=== PATIENT | female | born 1995 | race Two or more races ===

== ENCOUNTER 2017-09-05 10:25 | Observation (INO) | payer MEDICAID ==
[2017-09-05] MEDS ORDERED: PREN-96 PO (11:19)
[2017-09-05 11:35] LABS: Basophils # (auto) 0 uL; Red Cell Distribution Width 12.7 % (11.8-14.3)
[2017-09-05 11:36] LABS: INR 0.88 (0.9-1.15); Partial Thromboplastin Time 27.5 sec (23.78-33.04); Prothrombin Time 9.5 sec (9.27-12.13)
[2017-09-05 11:37] LABS: Basophils % (auto) 0.2 % (0.0-2.0); Eosinophils # (auto) 0.1 uL; Eosinophils % (auto) 1.1 % (0.0-7.0); Hematocrit 35.6 % (36.0-46.0); Hemoglobin 11.6 g/dL (12.2-16.2); Lymphocytes # (auto) 2.1 uL; Mean Corpuscular Hemoglobin 26.4 pg (28.0-32.0); Mean Corpuscular Hgb Conc. 32.6 g/dL (32.0-36.0); Monocytes # (auto) 0.8 uL; Monocytes % (auto) 7.1 % (0.0-12.0); Neutrophils % (auto) 72.6 % (37.0-80.0); Nucleated Red Blood Cells % 0.1 %; Platelet Count (auto) 275 10^3/uL (140-450); Red Blood Cells 4.39 10^6/uL (4.0-5.20)
[2017-09-05 11:38] LABS: Urine Bacteria MANY /hpf (None Seen); Urine Blood Negative /uL (Negative); Urine Specific Gravity 1.005 (1.001-1.035); Urine WBC 4 /hpf (0 - 5)
[2017-09-05 11:50] LABS: Alcohol, Urine < 3.0 mg/dL (0-5); Amphetamine Screen, Urine NEGATIVE (NEGATIVE); Barbiturate Scree,Urine NEGATIVE (NEGATIVE); Benzodiazephine Screen, Urine NEGATIVE (NEGATIVE); Cannabinoid Screen, Urine NEGATIVE (NEGATIVE); Cocaine Screen, Urine NEGATIVE (NEGATIVE); Opiate Scree,Urine NEGATIVE (NEGATIVE); Phencyclidine Screen, Urine NEGATIVE (NEGATIVE)
[2017-09-05 11:51] LABS: Albumin 2.8 g/dL (3.4-5.0); Bilirubin, Total 0.2 mg/dL (0.2-1.0); Calcium 8.4 mg/dL (8.5-10.1); Potassium 3.6 mmol/L (3.5-5.1); Total Protein 7.1 g/dL (6.4-8.2)
== END 2017-09-05 13:15 | disposition home or self-care (01) | DRG 563 ==
LOC: LDRP 10:25
PROVIDERS: ADMIT Obstetrics & Gynecology; ATTEND Obstetrics & Gynecology
DX: O60.03 Preterm labor without delivery, third trimester (principal); Z3A.31 31 weeks gestation of pregnancy
CPT/HCPCS: 36415; 80053; 80307; 81001; 84550; 85025; 85610; 85730; G0378

== ENCOUNTER → 2017-09-07 10:55 | Observation (INO) | payer MEDICAID ==
[~2017-09-07] VITALS: Ht 160 cm; Wt 89.8 kg
[~2017-09-07 10:55] MED LIST: PREN-96 PO
[2017-09-07 11:33] LABS: Protein, Urine 14.4 mg/dL (0.0-11.9)
[2017-09-07 11:43] LABS: 24 Hr. Total Protein, Urine 345.6 mg/24 Hr (<149.1)
[2017-09-07 11:45] LABS: Urine Bacteria FEW /hpf (None Seen); Urine Blood Negative /uL (Negative); Urine Mucus FEW (None Seen); Urine Specific Gravity 1.013 (1.001-1.035); Urine WBC 24 /hpf (0 - 5)
== END | disposition home or self-care (01) | DRG 955 ==
LOC: LDRP 10:55
PROVIDERS: ADMIT Obstetrics & Gynecology; ATTEND Obstetrics & Gynecology
DX: O13.9 Gestational [pregnancy-induced] hypertension without significant proteinuria, unspecified trimester (principal); Z3A.31 31 weeks gestation of pregnancy
CPT/HCPCS: 59025; 81001; 81002; 84156; G0378

== ENCOUNTER 2017-10-05 08:50 | Observation (INO) | payer MEDICAID ==
[~2017-10-05] VITALS: Ht 160 cm; Wt 100.7 kg
== END 2017-10-05 12:20 | disposition home or self-care (01) | DRG 566 ==
LOC: LDRP 08:50
PROVIDERS: ADMIT Specialist; ATTEND Specialist
DX: O13.3 Gestational [pregnancy-induced] hypertension without significant proteinuria, third trimester (principal); Z3A.35 35 weeks gestation of pregnancy
CPT/HCPCS: 59025; 81002; 84156; G0378

== ENCOUNTER 2017-10-27 10:15 | Observation (INO) | payer MEDICAID ==
[2017-10-27 11:16] LABS: Urine Bacteria MOD /hpf (None Seen); Urine Blood Negative /uL (Negative); Urine Specific Gravity 1.007 (1.001-1.035); Urine WBC 48 /hpf (0 - 5)
[2017-10-27 11:27] LABS: 24 Hr. Total Protein, Urine 409.5 mg/24 Hr (<149.1)
== END 2017-10-27 11:45 | disposition home or self-care (01) | DRG 566 ==
LOC: LDRP 10:15
PROVIDERS: ADMIT Obstetrics & Gynecology; ATTEND Obstetrics & Gynecology
DX: O13.3 Gestational [pregnancy-induced] hypertension without significant proteinuria, third trimester (principal); Z3A.38 38 weeks gestation of pregnancy
CPT/HCPCS: 59025; 81001; 81002; 84156; G0378

== ENCOUNTER 2017-10-29 11:15 | Observation (INO) | payer MEDICAID ==
[2017-10-29 13:16] LABS: Eosinophils # (auto) 0.1 uL; Mean Corpuscular Volume 78.1 fL (80.0-100.0); Monocytes # (auto) 0.7 uL; Neutrophils # (auto) 8.2 uL
[2017-10-29 13:17] LABS: Basophils # (auto) 0 uL; Basophils % (auto) 0.4 % (0.0-2.0); Eosinophils % (auto) 0.9 % (0.0-7.0); Hematocrit 34.3 % (36.0-46.0); Hemoglobin 11.2 g/dL (12.2-16.2); Lymphocytes # (auto) 1.9 uL; Lymphocytes % (auto) 17.1 % (10.0-50.0); Mean Corpuscular Hgb Conc. 32.7 g/dL (32.0-36.0); Monocytes % (auto) 6.2 % (0.0-12.0); Neutrophils % (auto) 75.4 % (37.0-80.0); Platelet Count (auto) 253 10^3/uL (140-450); Red Blood Cells 4.39 10^6/uL (4.0-5.20); Red Cell Distribution Width 13.9 % (11.8-14.3); White Blood Cell 10.9 10^3/uL (4.4-10.8)
[2017-10-29 13:18] LABS: Mean Corpuscular Hemoglobin 25.7 pg (28.0-32.0)
[2017-10-29 13:37] LABS: Albumin 2.6 g/dL (3.4-5.0); BUN/Creatinine Ratio 8.5; Bilirubin, Total 0.3 mg/dL (0.2-1.0); Potassium 3.4 mmol/L (3.5-5.1); Total Protein 6.6 g/dL (6.4-8.2); Uric Acid 4.1 mg/dL (2.6-6.0)
[2017-10-29 13:56] LABS: INR 0.85 (0.9-1.15); Partial Thromboplastin Time 26.9 sec (23.78-33.04); Prothrombin Time 9.2 sec (9.27-12.13)
[2017-10-29 15:07] LABS: Urine Bacteria FEW /hpf (None Seen); Urine Blood Negative /uL (Negative); Urine Specific Gravity 1.004 (1.001-1.035); Urine WBC 1 /hpf (0 - 5)
== END 2017-10-29 14:50 | disposition home or self-care (01) | DRG 566 ==
LOC: LDRP 11:15
PROVIDERS: ADMIT Specialist; ATTEND Specialist
DX: O13.3 Gestational [pregnancy-induced] hypertension without significant proteinuria, third trimester (principal); Z3A.39 39 weeks gestation of pregnancy
CPT/HCPCS: 36415; 59025; 76818; 80053; 81001; 81002; 84550; 85025; 85610; 85730; 87086; G0378

== ENCOUNTER 2017-10-31 12:55 | Observation (INO) | payer MEDICAID | END 2017-10-31 14:05 | disposition home or self-care (01) | DRG 566 | LOC: LDRP 12:55 | PROVIDERS: ADMIT Specialist; ATTEND Specialist | DX: O13.3 Gestational [pregnancy-induced] hypertension without significant proteinuria, third trimester (principal); Z3A.39 39 weeks gestation of pregnancy | CPT/HCPCS: 59025; 81002; G0378 ==

== ENCOUNTER 2017-11-02 09:00 | Inpatient (IN) | payer MEDICAID ==
[~2017-11-02] VITALS: Ht 160 cm; Wt 101.6 kg
[2017-11-02] MEDS ORDERED: LACT. RINGERS/OXYTOCIN 20UNITS 1,000 ML IV SCH (09:31)
[2017-11-02] MEDS ORDERED: PHISODERM TOP SOLN 240ML BTL TOP PRN (09:45)
[2017-11-02] MEDS ORDERED: WITCH HAZEL-GLYCERIN PAD TOP PRN (09:45)
[2017-11-02] MEDS ORDERED: DERMOPLAST 60ML BOTTLE TOP PRN (09:45)
[2017-11-02] MEDS ORDERED: NALBUPHINE HCL 10 MG/1ml INJECTION IV PRN (09:45)
[2017-11-02] MEDS ORDERED: LIDOCAINE 2% (LOCAL ANESTH.) PF 5ml SDV ID ONE (09:45)
[2017-11-02] MEDS ORDERED: METHYLERGONOVINE MALEATE 0.2 MG/ML AMP IM PRN (09:45)
[2017-11-02] MEDS ORDERED: LABETALOL HCL 200 MG TAB PO SCH ×2 (10:00→22:00)
[2017-11-02 11:08] LABS: Basophils # (auto) 0 uL; Eosinophils # (auto) 0.1 uL; Eosinophils % (auto) 0.7 % (0.0-7.0); Mean Corpuscular Hemoglobin 25.6 pg (28.0-32.0); Monocytes # (auto) 0.7 uL
[2017-11-02 11:10] LABS: Basophils % (auto) 0.4 % (0.0-2.0); Hematocrit 33.3 % (36.0-46.0); Hemoglobin 10.9 g/dL (12.2-16.2); Lymphocytes # (auto) 2.1 uL; Mean Corpuscular Hgb Conc. 32.8 g/dL (32.0-36.0); Mean Corpuscular Volume 78.1 fL (80.0-100.0); Monocytes % (auto) 7.6 % (0.0-12.0); Neutrophils # (auto) 6.5 uL; Neutrophils % (auto) 69.3 % (37.0-80.0); Platelet Count (auto) 251 10^3/uL (140-450); Red Blood Cells 4.26 10^6/uL (4.0-5.20); Red Cell Distribution Width 14.1 % (11.8-14.3); White Blood Cell 9.3 10^3/uL (4.4-10.8)
[2017-11-02 11:25] LABS: INR 0.87 (0.9-1.15); Partial Thromboplastin Time 27.1 sec (23.78-33.04); Prothrombin Time 9.4 sec (9.27-12.13)
[2017-11-02 11:30] LABS: Albumin 2.6 g/dL (3.4-5.0); Bilirubin, Total 0.4 mg/dL (0.2-1.0); Calcium 8.1 mg/dL (8.5-10.1); Potassium 3.2 mmol/L (3.5-5.1); Total Protein 6.4 g/dL (6.4-8.2); Uric Acid 3.3 mg/dL (2.6-6.0)
[2017-11-02] MEDS ORDERED: LABETALOL HCL 200 MG TAB PO ONE (12:00)
[2017-11-02] MEDS ORDERED: PENICILLIN G POT 5MIL/D5 50ML 50 ML IV ONE (12:00)
[2017-11-02 13:23] LABS: Protein, Urine 9.6 mg/dL (0.0-11.9)
[2017-11-02 13:29] LABS: 24 Hr. Total Protein, Urine 297.6 mg/24 Hr (<149.1)
[2017-11-02] MEDS ORDERED: POTASSIUM CHL 20 Meq TABLET PO ONE (13:30)
[2017-11-02] MEDS: LACTATED RINGER'S 1,000 ML IV SCH ×2 (14:10→16:54)
[2017-11-02] MEDS ORDERED: hydrALAZINE HCL 20 MG/ML VL IV PRN (14:15)
[2017-11-02] MEDS: PENICILLIN G POTASSIUM 2,500,000 UNITS in D5W 5% 50 ML IV SCH ×2 (16:17→20:30)
[2017-11-02 17:09] LABS: Urine Bacteria NONE SEEN /hpf (None Seen); Urine Blood Negative /uL (Negative); Urine Mucus FEW (None Seen); Urine Specific Gravity 1.007 (1.001-1.035); Urine WBC 1 /hpf (0 - 5)
[2017-11-03] VITALS (12 sets, daily range): BP systolic 127–147; BP diastolic 72–97
[2017-11-03] MEDS: PENICILLIN G POTASSIUM 2,500,000 UNITS in D5W 5% 50 ML IV SCH ×3 (00:18→08:00)
[2017-11-03] MEDS: LACTATED RINGER'S 1,000 ML IV SCH ×3 (02:09→22:15)
[2017-11-03] MEDS ORDERED: ONDANSETRON HCL 4 MG/2 ML VIAL IV PRN ×3 (02:15→10:00)
[2017-11-03] MEDS ORDERED: TETRACAINE 1% INJ 2 ML VIAL IJ ONE (08:05)
[2017-11-03 08:09] LABS: RPR Non Reactive (Non Reactive)
[2017-11-03] MEDS ORDERED: MORPHINE SULF(PF) 0.5MG/ML 10ML VIAL ONE (08:37)
[2017-11-03] MEDS ORDERED: fentaNYL CITRATE 100 MCG/2 ML VL ONE (08:38)
[2017-11-03] MEDS ORDERED: MIDAZOLAM HCL 1MG/1ML-2 ML VIAL ONE ×2 (08:38→09:21)
[2017-11-03] MEDS ORDERED: LACT. RINGERS/OXYTOCIN 20UNITS 1,000 ML IV SCH (09:41)
[2017-11-03] MEDS ORDERED: KETOROLAC TROMETH 30 MG/ML 1ML VIAL IV PRN (09:45)
[2017-11-03] MEDS: ceFAZolin 1GM/50ML 50 ML IV SCH ×2 (09:45→17:43)
[2017-11-03] MEDS ORDERED: HYDROmorphone HCL 2 MG/ML VL IV PRN (10:00)
[2017-11-03] MEDS ORDERED: DEXAMETHASONE SOD PHOS 10MG/1ML VIAL INJ IV PRN (10:00)
[2017-11-03] MEDS ORDERED: NALOXONE HCL 0.4 MG/ML VIAL IV PRN (10:00)
[2017-11-03] MEDS ORDERED: ePHEDrine SULFATE 50 MG/ML AMP IV PRN (10:00)
[2017-11-03] MEDS ORDERED: diphenhdrAMINE HCL 50 MG/1 ML VL IV PRN (10:00)
[2017-11-03] MEDS ORDERED: LABETALOL HCL 5 MG/ML 4ML SYRINGE IV PRN (10:00)
[2017-11-03] MEDS ORDERED: NALBUPHINE HCL 10 MG/1ml INJECTION SUBCUT ONE (10:00)
[2017-11-03] MEDS: KETOROLAC TROMETH 30 MG/ML 1ML VIAL IV PRN ×2 (13:46→19:53)
[2017-11-03] MEDS ORDERED: LABETALOL HCL 200 MG TAB PO SCH (18:00)
[2017-11-03 19:58] LABS: Basophils # (auto) 0.1 uL; Basophils % (auto) 0.4 % (0.0-2.0); Eosinophils # (auto) 0 uL; Hemoglobin 10.3 g/dL (12.2-16.2); Monocytes # (auto) 1.1 uL
[2017-11-03 20:00] LABS: Eosinophils % (auto) 0.4 % (0.0-7.0); Hematocrit 30.7 % (36.0-46.0); Lymphocytes # (auto) 2.3 uL; Lymphocytes % (auto) 17.6 % (10.0-50.0); Mean Corpuscular Hemoglobin 26.5 pg (28.0-32.0); Mean Corpuscular Hgb Conc. 33.5 g/dL (32.0-36.0); Mean Corpuscular Volume 79.1 fL (80.0-100.0); Monocytes % (auto) 8.3 % (0.0-12.0); Neutrophils # (auto) 9.4 uL; Neutrophils % (auto) 73.3 % (37.0-80.0); Red Blood Cells 3.88 10^6/uL (4.0-5.20); White Blood Cell 12.9 10^3/uL (4.4-10.8)
[2017-11-03 20:01] LABS: Platelet Count (auto) 214 10^3/uL (140-450); Red Cell Distribution Width 14.1 % (11.8-14.3)
[2017-11-03] MEDS: MORPHINE SULFATE 4 MG/ML SYR/VIAL IV PRN (22:59)
[2017-11-04] MEDS: ceFAZolin 1GM/50ML 50 ML IV SCH ×2 (01:51→09:26)
[2017-11-04] MEDS: KETOROLAC TROMETH 30 MG/ML 1ML VIAL IV PRN (02:52)
[2017-11-04 02:57] VITALS: BP 146/89
[2017-11-04] MEDS: MORPHINE SULFATE 4 MG/ML SYR/VIAL IV PRN (03:43)
[2017-11-04] MEDS: LACTATED RINGER'S 1,000 ML IV SCH (05:43)
[2017-11-04] MEDS: LABETALOL HCL 200 MG TAB PO SCH ×2 (05:43→17:35)
[2017-11-04 07:20] VITALS: BP 135/95
[2017-11-04] MEDS ORDERED: HYDROcodone-ACET 5/325MG TAB PO PRN (07:30)
[2017-11-04] MEDS ORDERED: BISACODYL 10 MG RECT SUPP PR PRN (07:30)
[2017-11-04] MEDS: IBUPROFEN 800 MG TAB PO PRN ×2 (09:26→23:31)
[2017-11-04 09:39] LABS: Basophils # (auto) 0.1 uL; Basophils % (auto) 0.6 % (0.0-2.0); Eosinophils # (auto) 0 uL; Hemoglobin 10.2 g/dL (12.2-16.2)
[2017-11-04 09:40] LABS: Eosinophils % (auto) 0.1 % (0.0-7.0); Hematocrit 31.5 % (36.0-46.0); Lymphocytes % (auto) 8.8 % (10.0-50.0); Mean Corpuscular Hemoglobin 25.5 pg (28.0-32.0); Mean Corpuscular Hgb Conc. 32.3 g/dL (32.0-36.0); Mean Corpuscular Volume 78.9 fL (80.0-100.0); Monocytes % (auto) 8.3 % (0.0-12.0); Neutrophils # (auto) 9.4 uL; Neutrophils % (auto) 82.2 % (37.0-80.0); Platelet Count (auto) 218 10^3/uL (140-450); Red Blood Cells 3.99 10^6/uL (4.0-5.20); Red Cell Distribution Width 14.1 % (11.8-14.3); White Blood Cell 11.5 10^3/uL (4.4-10.8)
[2017-11-04] MEDS: DOCUSATE SOD 100 MG CAP PO SCH ×2 (10:30→21:50)
[2017-11-04] MEDS: DOCUSATE CALCIUM 240 MG CAP PO SCH (10:30)
[2017-11-04 11:00] VITALS: BP 134/85
[2017-11-04] MEDS: SIMETHICONE 80 MG CHEWABLE TABLET PO SCH ×4 (11:35→21:51)
[2017-11-04] MEDS: HYDROcodone-ACET 5/325MG TAB PO PRN ×2 (15:15→21:51)
[2017-11-04 15:20] VITALS: BP 141/87
[2017-11-04 19:18] VITALS: BP 144/95
[2017-11-04 23:00] VITALS: BP 131/91
[2017-11-05 02:55] VITALS: BP 126/74
[2017-11-05] MEDS: SIMETHICONE 80 MG CHEWABLE TABLET PO SCH ×4 (05:43→21:21)
[2017-11-05] MEDS: LABETALOL HCL 200 MG TAB PO SCH ×2 (05:44→17:34)
[2017-11-05 07:01] VITALS: BP 141/93
[2017-11-05] MEDS: IBUPROFEN 800 MG TAB PO PRN ×2 (08:00→21:21)
[2017-11-05] MEDS: DOCUSATE CALCIUM 240 MG CAP PO SCH (09:58)
[2017-11-05] MEDS: DOCUSATE SOD 100 MG CAP PO SCH ×2 (09:58→21:21)
[2017-11-05 10:45] VITALS: BP 127/87
[2017-11-05 15:30] VITALS: BP 136/93
[2017-11-05 18:53] VITALS: BP 136/86
[2017-11-05 23:00] VITALS: BP 143/95
[2017-11-06 03:00] VITALS: BP 134/91
[2017-11-06] MEDS: LABETALOL HCL 200 MG TAB PO SCH (05:40)
[2017-11-06] MEDS: SIMETHICONE 80 MG CHEWABLE TABLET PO SCH (05:40)
[2017-11-06 07:00] VITALS: BP 135/96
== END 2017-11-06 09:00 | disposition home or self-care (01) | DRG 540 ==
LOC: LDRP 09:00 → OBSVTOIN 09:00 → LDRP 10:11
PROVIDERS: ADMIT Obstetrics & Gynecology; ATTEND Obstetrics & Gynecology
PROC: 10D00Z1 Extraction of Products of Conception, Low, Open Approach (ICD-10-PCS; principal; 2017-11-03 08:32)
DX: O13.4 Gestational [pregnancy-induced] hypertension without significant proteinuria, complicating childbirth (principal); O61.9 Failed induction of labor, unspecified; Z37.0 Single live birth; Z3A.39 39 weeks gestation of pregnancy; O14.94 Unspecified pre-eclampsia, complicating childbirth; O62.2 Other uterine inertia; O69.81X0 Labor and delivery complicated by cord around neck, without compression, not applicable or unspecified; O64.0XX0 Obstructed labor due to incomplete rotation of fetal head, not applicable or unspecified
CPT/HCPCS: 36415; 51702; 59025; 76818; 80053; 81001; 81002; 84156; 84550; 85025; 85610; 85730; 86592; 86850; 86900; 86901; 93005; 94762; 96361; 96365; 96366; 96374; 96375; J0690; J1885; J2250; J2405; J2540; J7060

== ENCOUNTER 2025-01-17 17:35 | Emergency (ER) | payer MEDICAID, OTHER ==
[~2025-01-17] VITALS: Ht 160 cm; Wt 81.0 kg
[2025-01-17 18:09] LABS: Hematocrit 35.5 % (36.0-46.0); Hemoglobin 11.9 g/dL (12.2-16.2); Mean Corpuscular Hemoglobin 27.1 pg (28.0-32.0); Mean Corpuscular Volume 81.1 fL (80.0-100.0); Nucleated Red Blood Cells % 0.0 %
[2025-01-17 18:25] LABS: Alanine Aminotransferase 18 U/L (7-40); Albumin 3.8 g/dL (3.2-4.8); Alkaline Phosphatase 137 U/L (46-116); Anion Gap 11 (5-15); BUN/Creatinine Ratio 11.1 (10.0-20.0); Blood Urea Nitrogen < 5 mg/dL (9-23); Calcium 8.9 mg/dL (8.7-10.4); Carbon Dioxide 20 mmol/L (20-31); Chloride 108 mmol/L (98-107); Glucose 77 mg/dL (74-106); Potassium 3.5 mmol/L (3.5-5.1); Sodium 139 mmol/L (136-145); Total Protein 6.7 g/dL (5.7-8.2)
[2025-01-17 18:26] LABS: Bilirubin, Total 0.6 mg/dL (0.2-1.0)
[2025-01-17] MEDS: DEXTROSE (50%) 50ML SYRG IV ONE (18:26)
[2025-01-17 20:21] LABS: Urine Protein, UAD Negative (Negative)
[2025-01-17] MEDS ORDERED: CEPH500T PO (21:05)
--- NOTE | 2025-01-17 21:05 | ED.PDOC ---
HPI (NEURO) HPI Comments HPI: Poor Historian. 29-year-old female presents to emergency department by EMS for evaluation of episode of dizziness that is described as vertigo that happened earlier today. Patient has G-tube P 1 37 weeks gestation. Denies any vaginal bleed or abdominal pain or anything related to . Per EMS her blood sugar was 78. She was given oral glucose. Later here in the ED her blood pressure was rechecked and it was low and she was given amp D50. Pre-hospital course vital signs blood pressure 149/87 and heart rate was 110. Patient's history was sitting in the car when she felt everything is spinning around her she did not know what to do so she called 911. At the time of my evaluation all her symptoms have resolved without any intervention. She has been ambulatory in the ER multiple times without any symptoms. She said similar symptoms happened approximately two weeks ago and resolved spontaneously. She said she just completed a course of antibiotics for UTI. She is followed up with the OB Gyne doctor last week. Patient has said that when she had these symptoms in the past she went to the ER and everything was fine and then she went to labor and delivery and was cleared and was sent home. EKG on arrival shows sinus tach 104 otherwise unremarkable. Past Medical History: Gestational diabetes and hypertension Past Surgical History: Denies any REVIEW OF SYSTEMS: CONSTITUTIONAL: Denies acute: fever, diaphoresis, chills, generalized weakness. HEAD: Denies acute: headache, photophobia Eyes: Denies acute: Double vision, vision loss, eye pain, eye discharge. EARS: Denies acute: tinnitus, hearing loss, ear discharge, ear pain, THROAT: Denies acute: sore throat, swelling, difficulty swallowing , pain with swallowing, change in voice. NECK: Denies acute: neck pain, neck swelling, stiff neck. HEART: Denies acute : chest pain, palpitations, LUNGS: Denies acute: SOB, wheezing, cough, hemoptysis ABDOMEN: Denies acute: abdominal pain, Nausea, Vomiting, diarrhea, melena , hematemesis, hematochezia SKIN: Denies acute: rash, redness, lesions, itchiness. EXTREMITIES: Denies acute: calf pain, numbness, tingling, weakness, denies pain in extremity. Denies acute: Low back pain. Neuro: Denies acute: focal neurological deficit, motor or sensory focal neurological deficit, tremors, seizure like activity, confusion, change in mental status, loss of bowel or bladder function, cauda equina like symptoms. : Denies acute: dysuria, hematuria, flank pain, increase in urinary frequency. PSYCH: Denies acute: hallucination, suicidal ideation, homicidal ideation. FEMALE: Denies acute: abnormal vaginal bleeding, foul odor, unusual discharge. PHYSICAL EXAM: General: -----no---acute distress, awake and alert. Head: normocephalic, atraumatic. Neck: supple, trachea is midline, no swelling. Throat: Normal phonation. Eyes:, no erythema, no purulent discharge, no proptosis, no icterus. Heart: regular rate, regular rhythm, no significant murmur appreciated. Lungs: no apparent respiratory distress, Able to speak in full sentences. No wheezing, no rhonchi, no crackles. No stridors Clear to auscultation bilaterally. Abdomen: non tender to palpation, non distended, soft, no guarding, no rebound, + bowel sounds. Neuro: Awake, Alert, oriented to name, self, situation, follows commands GCS=15. Speech is normal. Skin: no petechia, no purpura, no cyanosis, non-pale, not jaundice. Lower extremities: --no - Pitting edema no deformity, no focal swelling, no calf TTP. Makes eye contact. moves all four extremities. Face: no apparent facial droop. Ambulating in the ED independently. PERRLA, EOM-I No nystagmus. ED COURSE: DISCLAIMER: This medical document was created using an electronic medical record system with voice recognition software and computerized dictation system. Although this document has been carefully reviewed, there might still be some phonetic and typographical errors. Occasional wrong-word or "sound-alike" substitutions may have occurred due to the inherent limitations of voice recognition software. These areas are purely typographical due to imperfections of the software programs and do not reflect any compromise in the patient's medical care. Please read the chart carefully and recognize, using context, where these substitutions have occurred. Chief Complaint: Dizziness Time Seen by MD: 17:41 Reviewed Notes: Allergies Information Source: Patient, Emergency Med Personnel Mode of Arrival: EMS X-Ray, Labs, Meds, VS Vital Signs Date Time Temp Pulse Resp B/P (MAP) Pulse Ox O2 Delivery O2 Flow Rate FiO2 01/17/25 17:53 98.2 110 16 149/87 100 98.2 Lab Test 01/17/25 19:50 01/17/25 17:57 Range/Units Urine Color Light-yellow Yellow Urine Clarity Clear Clear Urine pH 7.0 5.0-9.0 Urine Specific [place] 1.005 1.001-1.035 Urine Protein Negative Negative Urine Ketones Negative Negative Urine Blood Negative Negative /uL Urine Nitrite Negative Negative Urine Bilirubin Negative Negative Urine Urobilinogen Normal Negative mg/dL Urine Leukocyte Esterase 1+ Negative /uL Urine RBC 2 0 - 4 /hpf Urine Microscopic WBC 8 H 0-5 /HPF Urine Squamous Epithelial Cells Few <5 /hpf Urine Bacteria Few H None Seen /hpf Urine Glucose 3+ H Normal mg/dL White Blood Count 8.6 4.4-10.8 10^3/uL Red Blood Count 4.37 4.0-5.20 10^6/uL Hemoglobin 11.9 L 12.2-16.2 g/dL Hematocrit 35.5 L 36.0-46.0 % Mean Corpuscular Volume 81.1 80.0-100.0 fL Mean Corpuscular Hemoglobin 27.1 L 28.0-32.0 pg Mean Corpuscular Hemoglobin Concent 33.4 32.0-36.0 g/dL Red Cell Distribution Width 13.3 11.8-14.3 % Platelet Count 220 140-450 10^3/uL Mean Platelet Volume 8.6 6.9-10.8 fL Neutrophils (%) (Auto) 69.6 37.0-80.0 % Lymphocytes (%) (Auto) 21.0 10.0-50.0 % Monocytes (%) (Auto) 6.9 0.0-12.0 % Eosinophils (%) (Auto) 2.2 0.0-7.0 % Basophils (%) (Auto) 0.3 0.0-2.0 % Neutrophils # (Auto) 6.0 1.6-8.6 10 ^3/uL Lymphocytes # (Auto) 1.8 0.4-5.4 10 ^3/uL Monocytes # (Auto) 0.6 0-1.3 10 ^3/uL Eosinophils # (Auto) 0.2 0-0.8 10 ^3/uL Basophils # (Auto) 0 0-0.2 10 ^3/uL Nucleated Red Blood Cells 0.0 % Sodium Level 139 136-145 mmol/L Potassium Level 3.5 3.5-5.1 mmol/L Chloride Level 108 H 98-107 mmol/L Carbon Dioxide Level 20 20-31 mmol/L Anion Gap 11 5-15 Blood Urea Nitrogen < 5 L 9-23 mg/dL Creatinine 0.45 L 0.550-1.02 mg/dL Glomerular Filtration Rate Calc 135 >90 mL/min BUN/Creatinine Ratio 11.1 10.0-20.0 Serum Glucose 77 74-106 mg/dL Calcium Level 8.9 8.7-10.4 mg/dL Total Bilirubin 0.6 0.2-1.0 mg/dL Aspartate Amino Transferase (AST) 20 13-40 U/L Alanine Aminotransferase (ALT) 18 7-40 U/L Alkaline Phosphatase 137 H 46-116 U/L Total Protein 6.7 5.7-8.2 g/dL Albumin 3.8 3.2-4.8 g/dL Current Medications Medications (Trade) Dose Ordered Sig/Conrad Route Start Time Stop Time Status Last Admin Dextrose 50 ml ONCE ONCE IV 01/17/25 18:15 01/17/25 18:16 DC 01/17/25 18:26 Time of 1ST Reevaluation: 21:04 Reevaluation 1ST: Resolved Patient Education/Counseling: Diagnosis, Treatment Family Education/Counseling: Other Departure 1 Departure Time of Disposition: 21:02 Impression: Primary Impression: Vertigo Additional Impression: UTI in Disposition: 01 HOME / SELF CARE / HOMELESS Condition: Stable Additional Instructions: Additional instructions: Please read all instructions provided in this packet carefully. You MUST follow-up with your primary care/family doctor in 1 to 2 days. If you are unable to see your primary care/family doctor, please return to our emergency room for re-assessment and re-evaluation in 1 to 2 days. Return to the emergency room here in our facility or to the nearest [facility] if your symptoms change or worsen. CONSULTATIONS: you MUST Follow-up for consultation as soon as possible with: -OB Gyne doctor and ENT doctor in 1-2 days. Please call for appointment. You MUST call the consultants office yourself to make an appointment. You may need to arrange that through your insurance and/or your primary/family doctor. If you are unable to see the lending consultant in 1 to 2 days, you must return to our emergency room (or any other ER of your choice) for re-assessment and re- evaluation. Adequate fluid hydration. Although you have been discharged from the Emergency Department, this does not mean that you have a "clean bill of health". No definitive diagnosis for your symptoms has been made today. It is possible that you are in the process of developing a serious illness. This is why you must return to the ED without fail if any new or worsening symptoms develop. e-Prescriptions Cephalexin Monohydrate (Cephalexin) 500 Mg Tab 1 TAB PO TID for 5 Days, #15 TAB Prov: ANNABELLA DE LEÓN DO 01/17/25 Discharged With: Self ANNABELLA DE LEÓN DO Jan 17, 2025 21:05
[2025-01-17 22:57] VITALS: BP 143/84; PULSE 106; RESP 18; TEMP 97.6; O2SAT 99
--- NOTE | 2025-01-18 08:04 | ECG ---
[facility] Test Date: 2025-01-17 Test Time: 18:00:44 Pat Name: JOSE WOOD Department: [facility] ED Patient ID: [facility]-[id number] Room: Gender: F Epic Cupid Analyst: : 1995 Requested By: ANNABELLA DE LEÓN Order Number: [id number] Reading MD: Measurements Intervals [place] Rate: 104 P: 116 [place]: 116 QRS: -20 QRSD: 92 T: 13 QT: 346 QTc: 455 Interpretive Statements Sinus tachycardia Borderline left axis deviation Nonspecific T abnormalities, anterior leads Please click the below link to view image of tracing.
== END 2025-01-17 22:57 | disposition home or self-care (01) ==
LOC: ER 17:35 → EDBD 17:35 → EDUNIT# 17:35 → ER 22:57
DX: O23.43 Unspecified infection of urinary tract in pregnancy, third trimester (principal); O26.893 Other specified pregnancy related conditions, third trimester; N39.0 Urinary tract infection, site not specified; Z3A.37 37 weeks gestation of pregnancy
CPT/HCPCS: 36415; 80053; 81001; 82947; 85025; 93005; 96374; 99284; J7042